=== PATIENT | male | born 1945 | race Caucasian/White ===

== ENCOUNTER 2019-06-28 23:00 | Emergency (ER) | payer MEDICARE, BC ==
--- NOTE | 2019-06-28 23:07 | EDM.PDOC ---
ED HPI GENERAL MEDICAL PROBLEM - General Chief Complaint: General Stated Complaint: SLIPPED AND FELL ON ICE INJURED ARM Time Seen by Provider: 06/28/19 23:04 - History of Present Illness INITIAL COMMENTS - FREE TEXT/NARRATIVE: HISTORY AND PHYSICAL: History of present illness: Patient is a 73-year-old white male presents today status post fall which injured his left upper extremity particularly his elbow although he does complain of shoulder and wrist pain also he states he did hit his head or lost consciousness he denies neck pain or other concern he is currently on Coumadin there's been no nausea vomiting chest pain palpitations or shortness of breath Review of systems: As per history of present illness and below otherwise all systems reviewed and negative. Past medical history: As per history of present illness and as reviewed below otherwise noncontributory. Surgical history: As per history of present illness and as reviewed below otherwise noncontributory. Social history: No reported history of drug or alcohol abuse. Family history: As per history of present illness and as reviewed below otherwise noncontributory. Physical exam: HEENT: Small scalp hematoma noted at the occipital base, normocephalic, pupils reactive, negative for conjunctival pallor or scleral icterus, mucous membranes moist, throat clear, neck supple, nontender, trachea midline. Lungs: Clear to auscultation, breath sounds equal bilaterally, chest nontender. Heart: S1S2, regular, negative for clicks, rubs, or JVD. Abdomen: Soft, nondistended, nontender. Negative for masses or hepatosplenomegaly. Negative for costovertebral tenderness. Pelvis: Stable nontender. Genitourinary: Deferred. Rectal: Deferred. Extremities: Tenderness to palpation of the shoulder elbow and wrist maximal tenderness posteriorly to the elbow is limited range of motion secondary to pain no crepitation or gross deformity neurovascular exam is unremarkable Neuro: Awake, alert, oriented. Cranial nerves II through XII unremarkable. Cerebellum unremarkable. Motor and sensory unremarkable throughout. Exam nonfocal. Diagnostics: CT brain CBC CMP PT/INR EKG x-ray left shoulder elbow and wrist Therapeutics: Left-sided Long-arm posterior mold with sling hydrocodone 5 mg by mouth Impression: #1 48 hours status post fall #2 head injury #3 Coumadin therapy #4 left shoulder elbow and wrist injury Definitive disposition and diagnosis as appropriate pending reevaluation and review of above. left elbow Pain Score (Numeric/FACES): 10 - Related Data Allergies Allergy/AdvReac Type Severity Reaction Status Date / Time No Known Allergies Allergy Verified 07/12/15 19:11 Home Meds: Home Meds Allopurinol [Zyloprim] 100 mg PO DAILY 07/12/15 [History] Aspirin 81 mg PO BEDTIME 07/12/15 [History] Furosemide [Lasix] 1 tab PO DAILY 07/12/15 [History] Rosuvastatin [Crestor] 1 tab PO DAILY 07/12/15 [History] Warfarin [Coumadin] 0 mg PO DAILY 07/12/15 [History] sitaGLIPtin Phos/Metformin HCl [Janumet 50-1,000 MG] 1 tab PO BID 07/12/15 [ History] Carvedilol [Coreg] 25 mg PO BID 06/28/19 [History] Vilazodone Hydrochloride [Viibryd] 10 mg PO 06/28/19 [History] Past Medical History Cardiovascular History: Reports: Automatic Implantable Cardioverter Defibrillators, CAD, High Cholesterol, Pacemaker, Stents Respiratory History: Reports: Sleep Apnea Musculoskeletal History: Reports: Back Pain, Chronic, Gout Neurological History: Reports: Headaches, Chronic Psychiatric History: Reports: Anxiety, Depression Endocrine/Metabolic History: Reports: Diabetes, Type II - Past Surgical History Cardiovascular Surgical History: Reports: Carotid Stents, Pacer, Percutaneous Transluminal Angioplasty ED ROS GENERAL - Review of Systems Review Of Systems: Comprehensive ROS is negative, except as noted in HPI. ED EXAM, GENERAL - Physical Exam Exam: See Below (The dictation) Course - Vital Signs Last Recorded V/S: Last Vital Signs Temp 36.9 C 06/28/19 23:07 Pulse 85 06/28/19 23:07 Resp 18 06/28/19 23:07 BP 138/78 06/28/19 23:07 Pulse Ox 97 06/28/19 23:07 - Orders/Labs/Meds Orders: Active Orders 24 hr Category Date Time Status EKG Documentation Completion [RC] STAT Care 06/28/19 23:06 Active Labs: Laboratory Tests 06/28/19 06/28/19 06/28/19 Range/Units 23:52 23:52 23:52 WBC 7.84 (4.0-11.0) K/uL RBC 3.96 L (4.50-5.90) M/uL Hgb 12.5 L (13.0-17.0) g/dL Hct 36.4 L (38.0-50.0) % MCV 91.9 (80.0-98.0) fL MCH 31.6 (27.0-32.0) pg MCHC 34.3 (31.0-37.0) g/dL RDW Std Deviation 46.9 (28.0-62.0) fl RDW Coeff of Christos 15 (11.0-15.0) % Plt Count 140 L (150-400) K/uL MPV 11.20 (7.40-12.00) fL Neut % (Auto) 68.3 (48.0-80.0) % Lymph % (Auto) 18.1 (16.0-40.0) % Kemper % (Auto) 10.5 (0.0-15.0) % Eos % (Auto) 2.7 (0.0-7.0) % Baso % (Auto) 0.4 (0.0-1.5) % Neut # (Auto) 5.4 (1.4-5.7) K/uL Lymph # (Auto) 1.4 (0.6-2.4) K/uL Kemper # (Auto) 0.8 (0.0-0.8) K/uL Eos # (Auto) 0.2 (0.0-0.7) K/uL Baso # (Auto) 0.0 (0.0-0.1) K/uL INR 1.26 Sodium 139 (136-148) mmol/L Potassium 4.1 (3.5-5.1) mmol/L Chloride 105 (98-107) mmol/L Carbon Dioxide 22.5 (21.0-32.0) mmol/L BUN 14 (7.0-18.0) mg/dL Creatinine 1.4 H (0.8-1.3) mg/dL Est Cr Clr Drug Dosing 46.82 mL/min Estimated GFR (MDRD) 50.0 ml/min Glucose 267 H (74-106) mg/dL Calcium 8.4 L (8.5-10.1) mg/dL Total Bilirubin 0.4 (0.2-1.0) mg/dL AST 10 L (15-37) IU/L ALT 25 (14-63) IU/L Alkaline Phosphatase 75 (46-116) U/L Troponin I (0.000-0.056) ng/mL Total Protein 7.0 (6.4-8.2) g/dL Albumin 3.3 L (3.4-5.0) g/dL Globulin 3.7 (2.6-4.0) g/dL Albumin/Globulin Ratio 0.9 (0.9-1.6) 06/28/19 Range/Units 23:52 WBC (4.0-11.0) K/uL RBC (4.50-5.90) M/uL Hgb (13.0-17.0) g/dL Hct (38.0-50.0) % MCV (80.0-98.0) fL MCH (27.0-32.0) pg MCHC (31.0-37.0) g/dL RDW Std Deviation (28.0-62.0) fl RDW Coeff of Christos (11.0-15.0) % Plt Count (150-400) K/uL MPV (7.40-12.00) fL Neut % (Auto) (48.0-80.0) % Lymph % (Auto) (16.0-40.0) % Kemper % (Auto) (0.0-15.0) % Eos % (Auto) (0.0-7.0) % Baso % (Auto) (0.0-1.5) % Neut # (Auto) (1.4-5.7) K/uL Lymph # (Auto) (0.6-2.4) K/uL Kemper # (Auto) (0.0-0.8) K/uL Eos # (Auto) (0.0-0.7) K/uL Baso # (Auto) (0.0-0.1) K/uL INR Sodium (136-148) mmol/L Potassium (3.5-5.1) mmol/L Chloride (98-107) mmol/L Carbon Dioxide (21.0-32.0) mmol/L BUN (7.0-18.0) mg/dL Creatinine (0.8-1.3) mg/dL Est Cr Clr Drug Dosing mL/min Estimated GFR (MDRD) ml/min Glucose (74-106) mg/dL Calcium (8.5-10.1) mg/dL Total Bilirubin (0.2-1.0) mg/dL AST (15-37) IU/L ALT (14-63) IU/L Alkaline Phosphatase (46-116) U/L Troponin I < 0.050 (0.000-0.056) ng/mL Total Protein (6.4-8.2) g/dL Albumin (3.4-5.0) g/dL Globulin (2.6-4.0) g/dL Albumin/Globulin Ratio (0.9-1.6) Departure - Departure Time of Disposition: 00:35 Disposition: Home, Self-Care 01 Condition: Good Clinical Impression: Fall, Head injury, Elbow injury, Shoulder injury, Wrist injury - Discharge Information Forms: ED Department Discharge Additional Instructions: The following information is given to patients seen in the emergency department who are being discharged to home. This information is to outline your options for follow-up care. We provide all patients seen in our emergency department with a follow-up referral. The need for follow-up, as well as the timing and circumstances, are variable depending upon the specifics of your emergency department visit. If you don't have a primary care physician on staff, we will provide you with a referral. We always advise you to contact your personal physician following an emergency department visit to inform them of the circumstance of the visit and for follow-up with them and/or the need for any referrals to a consulting specialist. The emergency department will also refer you to a specialist when appropriate. This referral assures that you have the opportunity for followup care with a specialist. All of these measure are taken in an effort to provide you with optimal care, which includes your followup. Under all circumstances we always encourage you to contact your private physician who remains a resource for coordinating your care. When calling for followup care, please make the office aware that this follow-up is from your recent emergency room visit. If for any reason you are refused follow-up, please contact the [facility] emergency department at and asked to speak to the emergency department charge nurse. [facility] Special[facility] - [facility] Professional [address], [address] [place] [address] Long-arm posterior mold sling as directed hydrocodone as prescribed continue current medications follow with orthopedic surgery as discussed return as needed as discussed - My Orders Last 24 Hours: My Active Orders 06/28/19 23:06 EKG Documentation Completion [RC] STAT - Assessment/Plan Last 24 Hours: My Active Orders 06/28/19 23:06 EKG Documentation Completion [RC] STAT
--- NOTE | 2019-06-28 23:55 | CT ---
INDICATION: Status post fall, striking head. COMPARISON: None available. TECHNIQUE: CT examination of the head was performed with 3 mm thick axial sections without intravenous contrast. Images were obtained from the vertex of the skull through the skull base, and I examined the images with the brain and bone windows. Please note that all CT scans at this facility use dose modulation, iterative reconstruction, and/or weight-based dosing when appropriate to reduce radiation dose to as low as reasonably achievable. FINDINGS: : The brain is normal in appearance for the patient`s age on today`s study, with no sign of mass lesion, mass effect, hemorrhage, or edema. There is mild dilatation of the ventricles and sulci representing mild, age-appropriate atrophy. Incidental note is made of a partially empty sella. The visualized portions of the orbits are normal in appearance. There is a mucous retention cyst in the inferior right maxillary sinus. The rest of the visualized portions of the paranasal sinuses and mastoids are clear. The osseous structures are normal in their appearance with no sign of abnormality in the skull base or calvarium. IMPRESSION: No sign of closed head injury. Normal CT appearance of the brain for the patient`s age. Mild, age-appropriate atrophy. Please note that all CT scans at this facility use dose modulation, iterative reconstruction, and/or weight-based dosing when appropriate to reduce radiation dose to as low as reasonably achievable. Dictated by Vinnie Chavez MD @ Jun 28 2019 11:51PM Signed by Dr. Vinnie Chavez @ Jun 28 2019 11:53PM
--- NOTE | 2019-06-28 23:57 | CR ---
INDICATION: Pain after fall COMPARISON: None available. FINDINGS: The left shoulder was examined a single AP view. The osseous structures are in anatomic alignment without fracture or dislocation. There is anatomic alignment of the humeral head and glenoid. The visualized chest is clear. A left-sided pacemaker has leads entering the left subclavian vein. The heart appears to be moderately enlarged, but this may be the result of shallow inspiration. IMPRESSION: Normal left shoulder on a single AP view. Dictated by Vinnie Chavez MD @ Jun 28 2019 11:54PM Signed by Dr. Vinnie Chavez @ Jun 28 2019 11:55PM
--- NOTE | 2019-06-28 23:59 | CR ---
INDICATION: Pain after fall COMPARISON: None available. FINDINGS: The left elbow is examined with AP and lateral views. I do not see a definite fracture, but there is a mild elbow joint effusion, with mild elevation of both the anterior and posterior fat pads. This suggests an occult fracture, possibly of the radial head. There is mild deformity of the distal humerus, with mild posterior angulation, consistent with an old, healed fracture. Small ossifications are seen adjacent to the superior portion of the olecranon consistent with previous soft tissue injury. There is a small dorsal olecranon spur and mild spurring of the anterior aspect of the radial head. The soft tissues are normal in appearance without sign of radio-opaque foreign body. IMPRESSION: No definite fracture. However, elbow joint effusion suggests an occult fracture, such as of the radial head. Mild deformity of the distal humeral shaft from an old, healed fracture. Dictated by Vinnie Chavez MD @ Jun 28 2019 11:54PM Signed by Dr. Vinnie Chavez @ Jun 28 2019 11:58PM
--- NOTE | 2019-06-29 00:01 | CR ---
HISTORY: Pain after fall COMPARISON: None available. FINDINGS: AP and lateral of the left wrist are obtained for a total of three views. There is no sign of fracture or dislocation. The bones of the carpus are in anatomic alignment with the distal radius. 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 The soft tissues are normal in appearance with no sign of foreign body. IMPRESSION: No sign of acute osseous injury. 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 Dictated by Vinnie Chavez MD @ Jun 28 2019 11:54PM Signed by Dr. Vinnie Chavez @ Jun 29 2019 12:00AM
[2019-06-29 00:20] LABS: CARBON DIOXIDE,CO2 22.5 mmol/L (21.0-32.0); POTASSIUM,K 4.1 mmol/L (3.5-5.1)
[2019-06-29] MEDS ORDERED: Acetaminophen/HYDROcodone 325-5 MG Tab PO ONE (00:36)
[2019-06-29 01:11] VITALS: BP 109/79; PULSE 85
== END 2019-06-29 01:05 | disposition home or self-care (01) ==
LOC: MW.ED 23:00
DX: S00.03XA Contusion of scalp, initial encounter (principal); S69.92XA Unspecified injury of left wrist, hand and finger(s), initial encounter; S49.92XA Unspecified injury of left shoulder and upper arm, initial encounter; S59.902A Unspecified injury of left elbow, initial encounter; E11.9 Type 2 diabetes mellitus without complications; I25.10 Atherosclerotic heart disease of native coronary artery without angina pectoris; E78.00 Pure hypercholesterolemia, unspecified; Z79.82 Long term (current) use of aspirin; Z79.01 Long term (current) use of anticoagulants; Z79.899 Other long term (current) drug therapy; W06.XXXA Fall from bed, initial encounter
CPT/HCPCS: 29105; 36415; 70450; 73020; 73070; 73100; 80053; 84484; 85025; 85610; 93005; 99284; A9270

== ENCOUNTER 2020-03-09 14:10 | Emergency (ER) | payer MEDICARE, BC ==
[2020-03-09] MEDS ORDERED: Sodium Chloride 0.9% 10 ML Syringe FLUSH PRN (14:24)
[2020-03-09] MEDS ORDERED: Sodium Chloride 0.9% 2.5 ML Syringe FLUSH PRN (14:24)
--- NOTE | 2020-03-09 14:28 | EDM.PDOC ---
ED HPI GENERAL MEDICAL PROBLEM - General Chief Complaint: Abdominal Pain Stated Complaint: APENDIX Time Seen by Provider: 03/09/20 14:18 Source of Information: Reports: Patient - History of Present Illness INITIAL COMMENTS - FREE TEXT/NARRATIVE: History of present illness: 74-year-old male presenting with left-sided abdominal pain that awoke him from sleep at 2 AM. He reports it is the size of a half dollar coin localized to the left middle abdomen and worse with palpation. Did have some mild nausea but no vomiting and decreased appetite throughout the day today. Has not had any diarrhea or constipation. No dysuria. Apparently today the Coumadin monitoring nurse called him and told him that his INR level was 1.5 and his goal is 2-3 and when they heard that he was having abdominal pain they told him to come to the hospital to get checked out. The patient is concerned that he may have appendicitis. Review of systems: As per history of present illness and below otherwise all systems reviewed and negative. Past medical history: As per history of present illness and as reviewed below otherwise noncontributory. Diabetes hypertension atrial fibrillation, coronary artery disease Surgical history: As per history of present illness and as reviewed below otherwise noncontributory. Pacemaker/defibrillator Social history: No reported history of drug or alcohol abuse. No tobacco Family history: As per history of present illness and as reviewed below otherwise noncontributory. Physical exam: GEN: no acute distress, well appearing HEENT: Atraumatic, normocephalic, mucous membranes moist, Neck: supple, nontender, trachea midline. Lungs: No respiratory distress. Heart: RRR Abdomen: Soft, nondistended, tender to palpation left upper quadrant/left middle abdomen. No right lower quadrant tenderness. Very mild left lower quadrant tenderness. No right upper quadrant tenderness. Mild guarding during palpation of the left mid abdomen. No rebound Back: nontender Extremities: Atraumatic. Neurovascularly intact. Neuro: Awake, alert, oriented. Neuro Exam nonfocal. Skin: warm, dry, no lesions Diagnostics: Labs, CT, UA, EKG Therapeutics: IV fluids MDM: Impression: [] Plan: [] Definitive disposition and diagnosis as appropriate pending reevaluation and review of above. Left Abdomen Pain Score (Numeric/FACES): 5 - Related Data Allergies Allergy/AdvReac Type Severity Reaction Status Date / Time No Known Allergies Allergy Verified 03/09/20 14:17 Home Meds: Home Meds Allopurinol [Zyloprim] 100 mg PO DAILY 07/12/15 [History] Aspirin 81 mg PO BEDTIME 07/12/15 [History] Furosemide [Lasix] 1 tab PO DAILY 07/12/15 [History] Rosuvastatin [Crestor] 1 tab PO DAILY 07/12/15 [History] Warfarin [Coumadin] 5 mg PO DAILY 07/12/15 [History] sitaGLIPtin Phos/Metformin HCl [Janumet 50-1,000 MG] 1 tab PO BID 07/12/15 [History] carvediloL [Coreg] 25 mg PO BID 06/28/19 [History] Past Medical History Cardiovascular History: Reports: Automatic Implantable Cardioverter Defibrillators, CAD, High Cholesterol, Pacemaker, Stents Respiratory History: Reports: Sleep Apnea Musculoskeletal History: Reports: Back Pain, Chronic, Gout Neurological History: Reports: Headaches, Chronic Psychiatric History: Reports: Anxiety, Depression Endocrine/Metabolic History: Reports: Diabetes, Type II Hematologic History: Reports: None - Infectious Disease History Infectious Disease History: Reports: Chicken Pox, Mumps - Past Surgical History Cardiovascular Surgical History: Reports: Carotid Stents, Pacer, Percutaneous Transluminal Angioplasty Social & Family History - Family History Family Medical History: Noncontributory ED ROS GENERAL - Review of Systems Review Of Systems: See Below (See HPI) ED EXAM, GI/ABD - Physical Exam Exam: See Below (See HPI) Course - Vital Signs Text/Narrative:: Left mid/upper abdominal pain. No diarrhea. Labs unremarkable except for elevated creatinine. Patient given IV fluids. CT scan shows diverticulosis without diverticulitis and no appendicitis. No etiology found for the patient's pain. He has been taking increased doses of ibuprofen lately. His INR level was slightly low on lab draw yesterday outpatient and also on draw here 1.46. Goal 2-3. EKG sinus rhythm rate 72 with PVC, slightly prolonged HI interval, nonspecific intraventricular delay but no acute ischemia or STEMI. Troponin negative. Repeat troponin pending. Possible gastritis versus gastric ulcer versus pancreatitis though patient is not a drinker. Repeat troponin negative. Lipase not elevated. Patient feels better after GI cocktail. Discussed again complete cessation of ibuprofen and need to follow-up with primary care physician soon as possible. Last Recorded V/S: Last Vital Signs Temp 97.1 F 03/09/20 19:30 Pulse 68 03/09/20 19:30 Resp 20 03/09/20 19:30 BP 111/75 03/09/20 19:30 Pulse Ox 98 03/09/20 19:30 - Orders/Labs/Meds Orders: Active Orders 24 hr Category Date Time Status Saline Lock Insert [OM.PC] Stat Oth 03/09/20 14:24 Ordered Labs: Laboratory Tests 03/09/20 03/09/20 03/09/20 Range/Units 14:35 14:35 14:35 WBC 6.71 (4.0-11.0) K/uL RBC 4.00 L (4.50-5.90) M/uL Hgb 12.6 L (13.0-17.0) g/dL Hct 38.0 (38.0-50.0) % MCV 95.0 (80.0-98.0) fL MCH 31.5 (27.0-32.0) pg MCHC 33.2 (31.0-37.0) g/dL RDW Std Deviation 47.0 (28.0-62.0) fl RDW Coeff of Christos 14 (11.0-15.0) % Plt Count 138 L (150-400) K/uL MPV 11.10 (7.40-12.00) fL Neut % (Auto) 63.0 (48.0-80.0) % Lymph % (Auto) 26.5 (16.0-40.0) % Cuming % (Auto) 6.9 (0.0-15.0) % Eos % (Auto) 3.3 (0.0-7.0) % Baso % (Auto) 0.3 (0.0-1.5) % Neut # (Auto) 4.2 (1.4-5.7) K/uL Lymph # (Auto) 1.8 (0.6-2.4) K/uL Cuming # (Auto) 0.5 (0.0-0.8) K/uL Eos # (Auto) 0.2 (0.0-0.7) K/uL Baso # (Auto) 0.0 (0.0-0.1) K/uL INR 1.41 APTT 26.3 (18.6-31.3) SEC Sodium 136 (136-148) mmol/L Potassium 3.9 (3.5-5.1) mmol/L Chloride 102 (98-107) mmol/L Carbon Dioxide 24.8 (21.0-32.0) mmol/L BUN 22 H (7.0-18.0) mg/dL Creatinine 1.6 H (0.8-1.3) mg/dL Est Cr Clr Drug Dosing 43.09 mL/min Estimated GFR (MDRD) 42.7 ml/min Glucose 170 H (74-106) mg/dL Calcium 8.4 L (8.5-10.1) mg/dL Total Bilirubin 0.5 (0.2-1.0) mg/dL AST 21 (15-37) IU/L ALT 27 (14-63) IU/L Alkaline Phosphatase 68 (46-116) U/L Troponin I < 0.050 (0.000-0.056) ng/mL Total Protein 7.2 (6.4-8.2) g/dL Albumin 3.5 (3.4-5.0) g/dL Globulin 3.7 (2.6-4.0) g/dL Albumin/Globulin Ratio 0.9 (0.9-1.6) Lipase (73-393) U/L Urine Color Urine Appearance Urine pH (5.0-8.0) Ur Specific [place] (1.001-1.035) Urine Protein (NEGATIVE) mg/dL Urine Glucose (UA) (NEGATIVE) mg/dL Urine Ketones (NEGATIVE) mg/dL Urine Occult Blood (NEGATIVE) Urine Nitrite (NEGATIVE) Urine Bilirubin (NEGATIVE) Urine Urobilinogen (<2.0) EU/dL Ur Leukocyte Esterase (NEGATIVE) 03/09/20 03/09/20 Range/Units 15:03 17:55 WBC (4.0-11.0) K/uL RBC (4.50-5.90) M/uL Hgb (13.0-17.0) g/dL Hct (38.0-50.0) % MCV (80.0-98.0) fL MCH (27.0-32.0) pg MCHC (31.0-37.0) g/dL RDW Std Deviation (28.0-62.0) fl RDW Coeff of Christos (11.0-15.0) % Plt Count (150-400) K/uL MPV (7.40-12.00) fL Neut % (Auto) (48.0-80.0) % Lymph % (Auto) (16.0-40.0) % [place]uming % (Auto) (0.0-15.0) % Eos % (Auto) (0.0-7.0) % Baso % (Auto) (0.0-1.5) % Neut # (Auto) (1.4-5.7) K/uL Lymph # (Auto) (0.6-2.4) K/uL Cuming # (Auto) (0.0-0.8) K/uL Eos # (Auto) (0.0-0.7) K/uL Baso # (Auto) (0.0-0.1) K/uL INR APTT (18.6-31.3) SEC Sodium (136-148) mmol/L Potassium (3.5-5.1) mmol/L Chloride (98-107) mmol/L Carbon Dioxide (21.0-32.0) mmol/L BUN (7.0-18.0) mg/dL Creatinine (0.8-1.3) mg/dL Est Cr Clr Drug Dosing mL/min Estimated GFR (MDRD) ml/min Glucose (74-106) mg/dL Calcium (8.5-10.1) mg/dL Total Bilirubin (0.2-1.0) mg/dL AST (15-37) IU/L ALT (14-63) IU/L Alkaline Phosphatase (46-116) U/L Troponin I < 0.050 (0.000-0.056) ng/mL Total Protein (6.4-8.2) g/dL Albumin (3.4-5.0) g/dL Globulin (2.6-4.0) g/dL Albumin/Globulin Ratio (0.9-1.6) Lipase 156 (73-393) U/L Urine Color YELLOW Urine Appearance CLEAR Urine pH 6.0 (5.0-8.0) Ur Specific [place] 1.025 (1.001-1.035) Urine Protein NEGATIVE (NEGATIVE) mg/dL Urine Glucose (UA) NEGATIVE (NEGATIVE) mg/dL Urine Ketones NEGATIVE (NEGATIVE) mg/dL Urine Occult Blood NEGATIVE (NEGATIVE) Urine Nitrite NEGATIVE (NEGATIVE) Urine Bilirubin NEGATIVE (NEGATIVE) Urine Urobilinogen 0.2 (<2.0) EU/dL Ur Leukocyte Esterase NEGATIVE (NEGATIVE) Meds: Medications Discontinued Medications Generic Name Dose Route Start Last Admin Trade Name Freq PRN Reason Stop Dose Admin Sodium Chloride 500 mls @ 999 mls/hr 03/09/20 14:30 03/09/20 14:36 Normal Saline IV 999 mls/hr .BOLUS JOHNIE Administration Sodium Chloride 500 mls @ 999 mls/hr 03/09/20 15:45 03/09/20 16:40 Normal Saline IV 999 mls/hr .BOLUS JOHNIE Administration Pantoprazole Sodium 40 mg/ 10 mls @ 300 mls/hr 03/09/20 17:36 03/09/20 23:28 Sodium Chloride IV 03/09/20 17:37 Not Given NOW ONE Iopamidol 100 ml 03/09/20 16:15 03/09/20 16:16 Isovue Multipack-370 (76%) IVPUSH 03/09/20 16:16 100 ml ONETIME STA Administration Sodium Chloride 10 ml 03/09/20 14:24 03/09/20 14:37 Saline Flush FLUSH 10 ml ASDIRECTED PRN Administration Keep Vein Open Sodium Chloride 2.5 ml 03/09/20 14:24 03/09/20 14:37 Saline Flush FLUSH 2.5 ml ASDIRECTED PRN Administration Keep Vein Open - Re-Assessments/Exams Free Text/Narrative Re-Assessment/Exam: 03/09/20 17:37 Reassessed the patient. He is resting comfortably and in no acute distress. Discussed all results with the patient at this time including slightly elevated creatinine, findings of diverticulosis without diverticulitis and no other findings on the CT to account for his pain. He does report that he has been taking increased doses of ibuprofen for his arthritis/inflammation of his arm. I discussed with the patient need to absolutely avoid ibuprofen or other NSAIDs due to interaction with his Coumadin and risk factor of ulcer formation. He agrees to stop immediately. Will give GI cocktail and Protonix. Repeat troponin ordered. 03/09/20 19:14 The patient is feeling better. He is in no acute distress. He is asymptomatic at this time. Will discharge the patient. The Coumadin clinic nurse will call him tomorrow to confirm dosage change. Repeat troponin and lipase are both negative. Stable for discharge. Departure - Departure Time of Disposition: 19:15 Disposition: Home, Self-Care 01 Clinical Impression: Abdominal pain Qualifiers: Abdominal location: left upper quadrant Qualified Code(s): R10.12 - Left upper quadrant pain - Discharge Information Instructions: Gastritis, Adult, [id number], Abdominal Pain, Adult, [id number] Referrals: PCP,None [Primary Care Provider] - Forms: ED Department Discharge Additional Instructions: Avoid any ibuprofen, Advil, Motrin, naproxen or Aleve intake as this will interact with your Coumadin. Drink plenty of fluids, rest, start with a clear liquid diet for the next 24 hours and then slowly progressed to bland solid foods and then you may progress as tolerated. Please follow-up with your primary care physician or 1 of the primary care clinics listed below as soon as possible for recheck. You may need further testing outpatient including possibly GI or general surgery follow-up for an endoscopy. We did not find a cause for your pain today although we did see diverticulosis without diverticulitis on your CT scan. Continue to monitor how you feel. If your symptoms worsen or if you develop a high fever or any other concerning symptoms, please return to the emergency department immediately. The following information is given to patients seen in the emergency department who are being discharged to home. This information is to outline your options for follow-up care. We provide all patients seen in our emergency department with a follow-up referral. The need for follow-up, as well as the timing and circumstances, are variable depending upon the specifics of your emergency department visit. If you don't have a primary care physician on staff, we will provide you with a referral. We always advise you to contact your personal physician following an emergency department visit to inform them of the circumstance of the visit and for follow-up with them and/or the need for any referrals to a consulting specialist. The emergency department will also refer you to a specialist when appropriate. This referral assures that you have the opportunity for follow-up care with a specialist. All of these measure are taken in an effort to provide you with optimal care, which includes your follow-up. Under all circumstances we always encourage you to contact your private physician who remains a resource for coordinating your care. When calling for follow-up care, please make the office aware that this follow-up is from your recent emergency room visit. If for any reason you are refused follow-up, please contact the [facility] Emergency Department at and asked to speak to the emergency department charge nurse. [facility] [address] [place] [id number] [address] Sepsis Event Note (ED) - Evaluation Sepsis Screening Result: No Definite Risk - My Orders Last 24 Hours: My Active Orders 03/09/20 14:24 Saline Lock Insert [OM.PC] Stat - Assessment/Plan Last 24 Hours: My Active Orders 03/09/20 14:24 Saline Lock Insert [OM.PC] Stat
[2020-03-09] MEDS ORDERED: Sodium Chloride 0.9% 500 ML IV SCH ×2 (14:30→15:45)
[2020-03-09 15:16] LABS: BLOOD UREA NITROGEN,BUN 22 mg/dL (7.0-18.0); CARBON DIOXIDE,CO2 24.8 mmol/L (21.0-32.0); CHLORIDE,CL 102 mmol/L (98-107); GLUCOSE RANDOM 170 mg/dL (74-106); POTASSIUM,K 3.9 mmol/L (3.5-5.1); SODIUM,NA 136 mmol/L (136-148)
[2020-03-09] MEDS ORDERED: Iopamidol 755 MG/ML 500 ML Multipack Bottle IVPUSH STA (16:15)
--- NOTE | 2020-03-09 16:38 | CT ---
CT abdomen and pelvis Technique: Multiple axial sections were obtained from above the dome of the diaphragm inferiorly through the pubic symphysis. Intravenous contrast was utilized. No oral contrast has been given. Comparison: No prior abdominal imaging is available. Findings: Visualized lung bases show nothing acute. Liver contains no focal parenchymal abnormality. Liver may have mild fatty infiltration. Moderate sized hiatal hernia is noted. Spleen appears within normal limits. Adrenal glands show no nodule. Pancreas shows no discrete abnormality. Gallbladder contains no calcified gallstones. 2 calcifications are seen within the right kidney. 3 calcifications are seen within the left kidney. These are felt compatible with nonobstructing calculi. Right kidney shows a small cortical cyst measuring 1.0 cm. Second small cyst within the right kidney measuring 6 mm. No additional abnormalities are seen within the kidneys. No ureteral dilatation or ureteral calculi are seen. No bladder calculi are seen. Aorta shows atherosclerotic change which continues into the iliac vessels. No aneurysm is seen. No retroperitoneal adenopathy or mesenteric abnormalities are seen. Small fat-containing umbilical hernia is noted. No pelvic mass or adenopathy is seen. Mild diverticuli are seen within the sigmoid colon with no findings of diverticulitis. No free fluid or inflammatory change is appreciated. Appendix is felt to be visualized and is normal in size. Bone window settings were reviewed which shows disc space narrowing from L2-3 through L5-S1 with vacuum phenomena. Disc space narrowing and vacuum phenomenon also noted at T9-10. Other degenerative change is also seen within the spine. No acute osseous finding is seen. Impression: 1. Findings as noted above. 2. Nothing acute is appreciated on CT study of the abdomen and pelvis. No etiology identified for the patient's left-sided abdominal pain. Diagnostic code #2 This report was dictated in MDT
[2020-03-09] MEDS ORDERED: Pantoprazole 40 MG in Sodium Chloride 0.9% 10 ML IV ONE (17:36)
[2020-03-09 18:01] LABS: LIPASE 156 U/L (73-393)
[2020-03-09 23:26] VITALS: BP 111/75; PULSE 68
== END 2020-03-09 19:39 | disposition home or self-care (01) ==
LOC: MW.ED 14:10
DX: R10.12 Left upper quadrant pain (principal); M10.9 Gout, unspecified; E11.9 Type 2 diabetes mellitus without complications; I25.10 Atherosclerotic heart disease of native coronary artery without angina pectoris; E78.00 Pure hypercholesterolemia, unspecified; Z95.5 Presence of coronary angioplasty implant and graft; Z79.01 Long term (current) use of anticoagulants; Z79.84 Long term (current) use of oral hypoglycemic drugs; Z79.899 Other long term (current) drug therapy; Z79.82 Long term (current) use of aspirin
CPT/HCPCS: 36415; 74177; 80053; 81003; 83690; 84484; 85025; 85610; 85730; 93005; 96360; 99284; J7040; Q9967

== ENCOUNTER 2021-01-01 08:52 | Observation (INO) | payer MEDICARE, BC ==
[2021-01-01] MEDS ORDERED: Sodium Chloride 0.9% 10 ML Syringe FLUSH PRN (09:06)
[2021-01-01] MEDS ORDERED: Sodium Chloride 0.9% 2.5 ML Syringe FLUSH PRN ×2 (09:06→11:45)
[2021-01-01 09:34] LABS: BLOOD UREA NITROGEN,BUN 18 mg/dL (7.0-18.0); CARBON DIOXIDE,CO2 23.9 mmol/L (21.0-32.0); CHLORIDE,CL 103 mmol/L (98-107); GLUCOSE RANDOM 189 mg/dL (74-106); SODIUM,NA 139 mmol/L (136-148)
--- NOTE | 2021-01-01 09:37 | EDM.PDOC ---
ED HPI GENERAL MEDICAL PROBLEM - General Chief Complaint: Chest Pain Stated Complaint: CHEST PAIN Time Seen by Provider: 01/01/21 09:05 - History of Present Illness INITIAL COMMENTS - FREE TEXT/NARRATIVE: HISTORY AND PHYSICAL: History of present illness: This is a 75-year-old gentleman with history significant for hypertension, diabetes, CAD, TIA, on Coumadin, status post recent cataract surgery approximately 1 to 2 weeks ago, status post defibrillator, who presents ER today secondary to left and right-sided chest discomfort with associated shortness of breath and diaphoresis x1 day. Patient reports that the pain has been intermittent in nature. Patient does not recall pain being exacerbated or relieved with rest, exertion, inspiration, cough. Patient denies any recent fevers, shakes, chills, nausea, vomiting, diarrhea, dysuria, frequency, urgency, abdominal pain, back pain. Patient denies any pain rating down his jaw or arm or back. Patient denies any associated nausea. Review of systems: As per history of present illness and below otherwise all systems reviewed and negative. Past medical history: As per history of present illness and as reviewed below otherwise noncontributory. Surgical history: As per history of present illness and as reviewed below otherwise noncontributory. Social history: No reported history of drug abuse. Family history: As per history of present illness and as reviewed below otherwise noncontributory. Physical exam: This patient was seen and evaluated during the 2019 SARS-CoV-2 novel coronavirus pandemic period. Community viral transmission is ongoing at time of this encounter and the emergency department is operating under pandemic response procedures. Constitutional: Patient is oriented to person, place, and time. Appears well- developed and well-nourished. No distress. HEENT: Moist mucous membranes Head: Normocephalic and atraumatic Eyes: Right eye exhibits no discharge. Left eye exhibits no discharge. No scleral icterus Neck: Normal range of motion. No tracheal deviation present. Cardiovascular: Normal rate and regular rhythm. Pulmonary: Effort normal, no respiratory distress. Abdominal: No distention Musculoskeletal: Normal range of motion Neurologic: Alert and oriented to person, place and time. Skin: [place], warm and dry. Psychiatric: Normal mood and affect. Behavior is normal. Judgment and thought content normal. Nursing note and vital signs have been reviewed Patient with nonreproducible tenderness palpation to his anterior chest wall. Diagnostics: EKG: As interpreted by ER physician: Leo: Nonspecific ST-T wave abnormalities Normal axis Left anterior hemiblock, age-indeterminate anterior septal wall AK likely old. No evidence of ST elevation AK Normal sinus rhythm heart rate of 82 Chest Xray: Normal cardiac silhouette No infiltrates or effusions identified. No PTX No evidence of acute bony fracture. As interpreted by ER MD: [employer]: Patient was lateral within normal limits. Patient's EKG does not show any significant changes. Patient did have an elevated BNP. Given patient's risk factors and symptoms patient will be admitted to the hospital for observation rule out AK, acute coronary syndrome, gentle diuresis. Case was discussed with Dr. Lui who agrees with current plan of care. Assessment and plan: This is a 75-year-old gentleman with high risk for coronary artery disease who presents ER today complaining of left-sided chest discomfort x1 day. He reports that the discomfort has been intermittent in nature and is currently pain-free. Patient has no relieving or exacerbating factors. Patient's risk factors include hypertension, diabetes, prior CAD. Patient's associated symptoms are shortness of breath, diaphoresis. Patient will have labs here in the ED drawn as well as an EKG, chest x-ray and will be reevaluated. Patient is currently chest pain-free. Patient will have a Covid test also secondary to his complaint of shortness of breath. Definitive disposition and diagnosis as appropriate pending reevaluation and review of above. - Related Data Allergies Allergy/AdvReac Type Severity Reaction Status Date / Time No Known Allergies Allergy Verified 01/01/21 09:50 Home Meds: Home Meds Allopurinol [Zyloprim] 1 tab PO DAILY 01/01/21 [History] Colchicine 2 tab PO DAILY 01/01/21 [History] Eplerenone [Inspra] 25 mg PO DAILY 01/01/21 [History] Ezetimibe 10 mg PO DAILY 01/01/21 [History] Furosemide 20 mg PO BID 01/01/21 [History] Insulin Detemir [Levemir Flextouch] 20 units SQ ASDIRECTED 01/01/21 [History] Omeprazole 20 mg PO DAILY 01/01/21 [History] Pravastatin [Pravachol] 80 mg PO DAILY 01/01/21 [History] Warfarin Sodium [Jantoven] 5 mg PO ASDIRECTED 01/01/21 [History] carvediloL [Carvedilol] 25 mg PO BID 01/01/21 [History] ramipriL [Ramipril] 2.5 mg PO DAILY 01/01/21 [History] Past Medical History Cardiovascular History: Reports: Automatic Implantable Cardioverter Defibrillators, CAD, High Cholesterol, Pacemaker, Stents Respiratory History: Reports: Sleep Apnea Musculoskeletal History: Reports: Back Pain, Chronic, Gout Other Musculoskeletal History: fx L elbow- continued numbness Neurological History: Reports: Headaches, Chronic Psychiatric History: Reports: Anxiety, Depression Endocrine/Metabolic History: Reports: Diabetes, Type II Hematologic History: Reports: None - Infectious Disease History Infectious Disease History: Reports: Chicken Pox, Mumps - Past Surgical History Cardiovascular Surgical History: Reports: Carotid Stents, Pacer, Percutaneous Transluminal Angioplasty Social & Family History - Family History Family Medical History: No Pertinent Family History - Tobacco Use Tobacco Use Status *Q: Never Tobacco User - Caffeine Use Caffeine Use: Reports: Tea - Recreational Drug Use Recreational Drug Use: No ED ROS GENERAL - Review of Systems Review Of Systems: See Below ED EXAM, GENERAL - Physical Exam Exam: See Below Course - Vital Signs Last Recorded V/S: Last Vital Signs Temp 97.6 F 01/01/21 09:00 Pulse 82 01/01/21 10:31 Resp 16 01/01/21 10:31 BP 109/57 L 01/01/21 10:31 Pulse Ox 96 01/01/21 10:31 - Orders/Labs/Meds Orders: Active Orders 24 hr Category Date Time Status Patient Status [ADT] Routine ADT 01/01/21 10:49 Ordered EKG Documentation Completion [RC] AM Care 01/01/21 09:06 Active Sodium Chloride 0.9% [Saline Flush] Med 01/01/21 09:06 Active 10 ml FLUSH ASDIRECTED PRN Sodium Chloride 0.9% [Saline Flush] Med 01/01/21 09:06 Active 2.5 ml FLUSH ASDIRECTED PRN Saline Lock Insert [OM.PC] Stat Oth 01/01/21 09:06 Ordered Medication Orders Sodium Chloride (Sodium Chloride 0.9% 10 Ml Syringe) 10 ml FLUSH ASDIRECTED PRN PRN Reason: Keep Vein Open Last Admin: 01/01/21 09:27 Dose: 10 ml Documented by: [email or web address] Sodium Chloride (Sodium Chloride 0.9% 2.5 Ml Syringe) 2.5 ml FLUSH ASDIRECTED PRN PRN Reason: Keep Vein Open Last Admin: 01/01/21 09:27 Dose: 2.5 ml Documented by: [id number] Labs: Laboratory Tests 01/01/21 01/01/21 01/01/21 Range/Units 08:57 08:57 08:57 WBC 10.07 (4.0-11.0) K/uL RBC 4.31 L (4.50-5.90) M/uL Hgb 13.4 (13.0-17.0) g/dL Hct 40.3 (38.0-50.0) % MCV 93.5 (80.0-98.0) fL MCH 31.1 (27.0-32.0) pg MCHC 33.3 (31.0-37.0) g/dL RDW Std Deviation 51.1 (28.0-62.0) fl RDW Coeff of Christos 15 (11.0-15.0) % Plt Count 188 (150-400) K/uL MPV 11.40 (7.40-12.00) fL Neut % (Auto) 71.2 (48.0-80.0) % Lymph % (Auto) 17.8 (16.0-40.0) % Bent % (Auto) 8.4 (0.0-15.0) % Eos % (Auto) 2.1 (0.0-7.0) % Baso % (Auto) 0.5 (0.0-1.5) % Neut # (Auto) 7.2 H (1.4-5.7) K/uL Lymph # (Auto) 1.8 (0.6-2.4) K/uL Bent # (Auto) 0.9 H (0.0-0.8) K/uL Eos # (Auto) 0.2 (0.0-0.7) K/uL Baso # (Auto) 0.1 (0.0-0.1) K/uL Nucleated RBC % 0.0 /100WBC Nucleated RBCs # 0 K/uL INR 2.79 D-Dimer, Quantitative 0.36 (0.0-0.50) mg/L FEU Sodium 139 (136-148) mmol/L Potassium 4.0 (3.5-5.1) mmol/L Chloride 103 (98-107) mmol/L Carbon Dioxide 23.9 (21.0-32.0) mmol/L BUN 18 (7.0-18.0) mg/dL Creatinine 1.6 H (0.8-1.3) mg/dL Est Cr Clr Drug Dosing 42.46 mL/min Estimated GFR (MDRD) 42.6 ml/min Glucose 189 H (74-106) mg/dL Calcium 8.7 (8.5-10.1) mg/dL Total Bilirubin 0.9 (0.2-1.0) mg/dL AST 14 L (15-37) IU/L ALT 18 (14-63) IU/L Alkaline Phosphatase 80 (46-116) U/L Troponin I < 0.050 (0.000-0.056) ng/mL B-Natriuretic Peptide (<100) PG/ML Total Protein 7.8 (6.4-8.2) g/dL Albumin 3.4 (3.4-5.0) g/dL Globulin 4.4 H (2.6-4.0) g/dL Albumin/Globulin Ratio 0.8 L (0.9-1.6) SARS-CoV-2 RNA (ANALI) (NEGATIVE) 01/01/21 01/01/21 Range/Units 08:57 09:25 WBC (4.0-11.0) K/uL RBC (4.50-5.90) M/uL Hgb (13.0-17.0) g/dL Hct (38.0-50.0) % MCV (80.0-98.0) fL MCH (27.0-32.0) pg MCHC (31.0-37.0) g/dL RDW Std Deviation (28.0-62.0) fl RDW Coeff of Christos (11.0-15.0) % Plt Count (150-400) K/uL MPV (7.40-12.00) fL Neut % (Auto) (48.0-80.0) % Lymph % (Auto) (16.0-40.0) % Bent % (Auto) (0.0-15.0) % Eos % (Auto) (0.0-7.0) % Baso % (Auto) (0.0-1.5) % Neut # (Auto) (1.4-5.7) K/uL Lymph # (Auto) (0.6-2.4) K/uL Bent # (Auto) (0.0-0.8) K/uL Eos # (Auto) (0.0-0.7) K/uL Baso # (Auto) (0.0-0.1) K/uL Nucleated RBC % /100WBC Nucleated RBCs # K/uL INR D-Dimer, Quantitative (0.0-0.50) mg/L FEU Sodium (136-148) mmol/L Potassium (3.5-5.1) mmol/L Chloride (98-107) mmol/L Carbon Dioxide (21.0-32.0) mmol/L BUN (7.0-18.0) mg/dL Creatinine (0.8-1.3) mg/dL Est Cr Clr Drug Dosing mL/min Estimated GFR (MDRD) ml/min Glucose (74-106) mg/dL Calcium (8.5-10.1) mg/dL Total Bilirubin (0.2-1.0) mg/dL AST (15-37) IU/L ALT (14-63) IU/L Alkaline Phosphatase (46-116) U/L Troponin I (0.000-0.056) ng/mL B-Natriuretic Peptide 671 H (<100) PG/ML Total Protein (6.4-8.2) g/dL Albumin (3.4-5.0) g/dL Globulin (2.6-4.0) g/dL Albumin/Globulin Ratio (0.9-1.6) SARS-CoV-2 RNA (ANALI) NEGATIVE (NEGATIVE) Meds: Medications Generic Name Dose Route Start Last Admin Trade Name Freq PRN Reason Stop Dose Admin Sodium Chloride 10 ml 01/01/21 09:06 01/01/21 09:27 Sodium Chloride 0.9% 10 Ml Syringe FLUSH 10 ml ASDIRECTED PRN Administration Keep Vein Open Sodium Chloride 2.5 ml 01/01/21 09:06 01/01/21 09:27 Sodium Chloride 0.9% 2.5 Ml Syringe FLUSH 2.5 ml ASDIRECTED PRN Administration Keep Vein Open Discontinued Medications Generic Name Dose Route Start Last Admin Trade Name Freq PRN Reason Stop Dose Admin Furosemide 40 mg 01/01/21 10:38 01/01/21 10:44 Furosemide 40 Mg/4 Ml Vial IVPUSH 01/01/21 10:39 40 mg NOW ONE Administration Departure - Departure Time of Disposition: 10:50 Disposition: Refer to Observation Condition: Good Clinical Impression: Acute coronary syndrome, CHF (congestive heart failure) - Discharge Information Forms: ED Department Discharge Sepsis Event Note (ED) - Evaluation Sepsis Screening Result: No Definite Risk - Focused Exam Vital Signs: Vital Signs Temp Pulse Resp BP Pulse Ox 01/01/21 10:31 82 16 109/57 L 96 01/01/21 10:02 82 16 90/72 96 01/01/21 09:32 80 15 95/67 96 01/01/21 09:00 97.6 F 82 16 119/72 98 - My Orders Last 24 Hours: My Active Orders 01/01/21 09:06 EKG Documentation Completion [RC] AM Sodium Chloride 0.9% [Saline Flush] 10 ml FLUSH ASDIRECTED PRN Sodium Chloride 0.9% [Saline Flush] 2.5 ml FLUSH ASDIRECTED PRN Saline Lock Insert [OM.PC] Stat 01/01/21 10:49 Patient Status [ADT] Routine - Assessment/Plan Last 24 Hours: My Active Orders 01/01/21 09:06 EKG Documentation Completion [RC] AM Sodium Chloride 0.9% [Saline Flush] 10 ml FLUSH ASDIRECTED PRN Sodium Chloride 0.9% [Saline Flush] 2.5 ml FLUSH ASDIRECTED PRN Saline Lock Insert [OM.PC] Stat 01/01/21 10:49 Patient Status [ADT] Routine
--- NOTE | 2021-01-01 10:25 | CR ---
For Patients: As a result of the Century Cures Act, medical imaging exams and procedure reports are released immediately into your electronic medical record. You may view this report before your referring provider. If you have questions, please contact your health care provider. INDICATION: Chest pain. COMPARISON: Chest radiograph July 12, 2015. TECHNIQUE: Portable AP chest. FINDINGS: Normal size cardiac silhouette .clear lung martell without evidence of acute pneumonic infiltrates or CHF. Implanted cardiac defibrillator in place . No pneumothorax or pleural effusion. IMPRESSION: 1. Cardiac pacer in place. 2. No acute pathology. 3. No interval change. Dictated by Keo Abbott MD @ 01/01/2021 10:24:[address] Keo Abbott @ Jan 01 2021 10:24AM
[2021-01-01] MEDS ORDERED: Furosemide 40 MG/4 ML VIAL IVPUSH ONE ×2 (10:38→18:00)
[2021-01-01] MEDS ORDERED: Ondansetron 4 MG/2 ML SDV IVPUSH PRN (11:45)
[2021-01-01] MEDS ORDERED: Acetaminophen 325 MG Tab PO PRN (11:45)
--- NOTE | 2021-01-01 11:52 | PCM.HP.2 ---
H&P History of Present Illness - General Date of Service: 01/01/21 Admit Problem/Dx: Admission Diagnosis/Problem Admission Diagnosis/Problem chest pain rule out acute coronary syndrome Source of Information: Patient, Significant Other ( at bedside) History Limitations: Reports: No Limitations - History of Present Illness Initial Comments - Free Text/Narative: This 75-year-old male with past medical history of hypertension, CAD, large anterior wall WI with delayed revascularization in 2012, ICD placement approximately 10 years ago, TIA, paroxysmal A. fib on Coumadin, ischemic cardiomyopathy with severe LV systolic dysfunction presented to the ER with complaints of left and right-sided chest pain that started over the weekend. He reports that the chest pain started after him and his were working on outdoor sprinkles when he had to get down on his hands and knees to do some work. He reports he was unable to stand up after that due to severe fatigue and shortness of breath. He reports that the pain in his chest starts on the left side and spreads to his left sometimes sharp in nature denies any associated diaphoresis or radiation of pain. He reports he does get extremely short of breath during these moments and has taken some nitro at home with mild improvement. He reports he has not seen his sales audit clerk in a few months but does see Dr. Joseph from [facility] in [place]. He reports he has not had a stress test in few years and has not had an echo in the last 1 to 2 years. He reports he otherwise has been feeling well at home. He normally is able to walk at least 50 feet without becoming short of breath but does have limited activity due to dyspnea. Reports that at times he does have shortness of breath with lying flat denies any peripheral edema. He denies any fevers or chills. No nausea vomiting diarrhea or dysuria. He denies any back pain and no neurological concerns. He denies any history of tobacco use, alcohol use and no recreational drug use. He does report that his mother and brother had significant cardiac issues unsure of what exactly they were. In the ER vital signs stable. He was given Lasix 40 mg IV in the ER. Blood pressure did dip to 95/67 but is steadily improved and is now 116/82. Patient remains on room air satting 96%. Has intermittent signs of dyspnea. No leukocytosis noted INR 2.79 D-dimer 0.36 sodium 139 potassium 4 creatinine 1.6 which is at baseline BUN 18 blood sugars 180s. Troponin negative BNP elevated at 671. Covid swab negative chest x-ray in the ER revealed no acute pathology c lear lung martell with no evidence of infiltrates or CHF. ICD in place. EKG revealed sinus rhythm with no specific ST-T wave abnormalities or ischemic changes. History of anterior septal wall WI likely. Heart rate 82. Patient will be admitted for chest pain rule out ACS. - Related Data Allergies/Adverse Reactions: Allergies Allergy/AdvReac Type Severity Reaction Status Date / Time No Known Allergies Allergy Verified 01/01/21 13:19 Home Medications: Home Meds Allopurinol [Zyloprim] 300 mg PO DAILY 01/01/21 [History] Colchicine 1.2 mg PO ONETIME PRN 01/01/21 [History] Eplerenone [Inspra] 12.5 mg PO DAILY 01/01/21 [History] Ezetimibe 10 mg PO DAILY 01/01/21 [History] Furosemide 20 mg PO BID 01/01/21 [History] Insulin Detemir [Levemir Flextouch] 20 units SQ ASDIRECTED 01/01/21 [History] Omeprazole 20 mg PO DAILY 01/01/21 [History] Pravastatin [Pravachol] 80 mg PO DAILY 01/01/21 [History] Warfarin Sodium [Jantoven] 5 mg PO ASDIRECTED 01/01/21 [History] carvediloL [Carvedilol] 25 mg PO BID 01/01/21 [History] ramipriL [Ramipril] 2.5 mg PO DAILY 01/01/21 [History] sitaGLIPtin Phos/Metformin HCl [Janumet 50-1,000 MG] 50 - 1,000 mg PO BIDMEALS 01/01/21 [History] Past Medical History Cardiovascular History: Reports: Automatic Implantable Cardioverter Defibrillators, CAD, High Cholesterol, Pacemaker, Stents Respiratory History: Reports: Sleep Apnea Gastrointestinal History: Reports: None Musculoskeletal History: Reports: Back Pain, Chronic, Gout Other Musculoskeletal History: fx L elbow- continued numbness Neurological History: Reports: Headaches, Chronic, TIA Psychiatric History: Reports: Anxiety, Depression Endocrine/Metabolic History: Reports: Diabetes, Type II Hematologic History: Reports: None - Infectious Disease History Infectious Disease History: Reports: Chicken Pox, Mumps - Past Surgical History Cardiovascular Surgical History: Reports: Carotid Stents, Pacer, Percutaneous Transluminal Angioplasty Social & Family History - Family History Family Medical History: No Pertinent Family History - Tobacco Use Tobacco Use Status *Q: Never Tobacco User - Caffeine Use Caffeine Use: Reports: Tea - Alcohol Use Alcohol Use History: No - Recreational Drug Use Recreational Drug Use: No - Living Situation & Occupation Living situation: Reports: Occupation: Retired H&P Review of Systems - Review of Systems: Review Of Systems: See Below General: Reports: Fatigue. Denies: Fever, Chills HEENT: Reports: No Symptoms. Denies: Headaches, Sinus Congestion, Vertigo Pulmonary: Reports: Shortness of Breath (Intermittent). Denies: Wheezing, Cough Cardiovascular: Reports: Chest Pain (Reproducible on left side with palpation), Dyspnea on Exertion, Orthopnea. Denies: Edema, Lightheadedness Gastrointestinal: Reports: No Symptoms, Constipation. Denies: Abdominal Pain, Black Stool, Bloody Stool, Diarrhea, Nausea, Vomiting Genitourinary: Reports: No Symptoms. Denies: Dysuria, Frequency, Burning Musculoskeletal: Reports: No Symptoms Skin: Reports: No Symptoms Psychiatric: Reports: No Symptoms Neurological: Reports: No Symptoms Hematologic/Lymphatic: Reports: No Symptoms Immunologic: Reports: No Symptoms Exam - Exam Exam: See Below - Vital Signs Vital Signs: Last Vital Signs Temp 97.6 F 01/01/21 09:00 Pulse 82 01/01/21 10:31 Resp 16 01/01/21 10:31 BP 109/57 L 01/01/21 10:31 Pulse Ox 96 01/01/21 10:31 Weight: 111.13 kg - Exam Quality Assessment: DVT Prophylaxis (Coumadin). No: Supplemental Oxygen General: Alert, Oriented, Cooperative HEENT: Conjunctiva Clear, Mucosa Moist & [place], Posterior Pharynx Clear Neck: Supple Lungs: Decreased Breath Sounds (Bibasilar). No: Normal Respiratory Effort (Intermittent dyspnea noted during speech) Cardiovascular: Regular Rate, Regular Rhythm, Normal S1, Normal S2, Other (ICD noted to left chest). No: Systolic Murmur GI/Abdominal Exam: Normal Bowel Sounds, Soft, Non-Tender Back Exam: Normal Inspection, Full Range of Motion Extremities: Normal Inspection, Normal Range of Motion, Non-Tender, No Pedal Edema Neuro Extensive - Mental Status: Alert, Oriented x3 Neuro Extensive - Motor, Sensory, Reflexes: CN II-XII Intact Psychiatric: Alert, Normal Affect, Normal Mood - Patient Data Lab Results Last 24 hrs: Laboratory Results - last 24 hr 01/01/21 01/01/21 01/01/21 Range/Units 08:57 08:57 08:57 WBC 10.07 (4.0-11.0) K/uL RBC 4.31 L (4.50-5.90) M/uL Hgb 13.4 (13.0-17.0) g/dL Hct 40.3 (38.0-50.0) % MCV 93.5 (80.0-98.0) fL MCH 31.1 (27.0-32.0) pg MCHC 33.3 (31.0-37.0) g/dL RDW Std Deviation 51.1 (28.0-62.0) fl RDW Coeff of Christos 15 (11.0-15.0) % Plt Count 188 (150-400) K/uL MPV 11.40 (7.40-12.00) fL Neut % (Auto) 71.2 (48.0-80.0) % Lymph % (Auto) 17.8 (16.0-40.0) % [place] % (Auto) 8.4 (0.0-15.0) % Eos % (Auto) 2.1 (0.0-7.0) % Baso % (Auto) 0.5 (0.0-1.5) % Neut # (Auto) 7.2 H (1.4-5.7) K/uL Lymph # (Auto) 1.8 (0.6-2.4) K/uL [place] # (Auto) 0.9 H (0.0-0.8) K/uL Eos # (Auto) 0.2 (0.0-0.7) K/uL Baso # (Auto) 0.1 (0.0-0.1) K/uL Nucleated RBC % 0.0 /100WBC Nucleated RBCs # 0 K/uL INR 2.79 D-Dimer, Quantitative 0.36 (0.0-0.50) mg/L FEU Sodium 139 (136-148) mmol/L Potassium 4.0 (3.5-5.1) mmol/L Chloride 103 (98-107) mmol/L Carbon Dioxide 23.9 (21.0-32.0) mmol/L BUN 18 (7.0-18.0) mg/dL Creatinine 1.6 H (0.8-1.3) mg/dL Est Cr Clr Drug Dosing 42.46 mL/min Estimated GFR (MDRD) 42.6 ml/min Glucose 189 H (74-106) mg/dL Calcium 8.7 (8.5-10.1) mg/dL Total Bilirubin 0.9 (0.2-1.0) mg/dL AST 14 L (15-37) IU/L ALT 18 (14-63) IU/L Alkaline Phosphatase 80 (46-116) U/L Troponin I < 0.050 (0.000-0.056) ng/mL B-Natriuretic Peptide (<100) PG/ML Total Protein 7.8 (6.4-8.2) g/dL Albumin 3.4 (3.4-5.0) g/dL Globulin 4.4 H (2.6-4.0) g/dL Albumin/Globulin Ratio 0.8 L (0.9-1.6) SARS-CoV-2 RNA (ANALI) (NEGATIVE) 01/01/21 01/01/21 Range/Units 08:57 09:25 WBC (4.0-11.0) K/uL RBC (4.50-5.90) M/uL Hgb (13.0-17.0) g/dL Hct (38.0-50.0) % MCV (80.0-98.0) fL MCH (27.0-32.0) pg MCHC (31.0-37.0) g/dL RDW Std Deviation (28.0-62.0) fl RDW Coeff of Christos (11.0-15.0) % Plt Count (150-400) K/uL MPV (7.40-12.00) fL Neut % (Auto) (48.0-80.0) % Lymph % (Auto) (16.0-40.0) % [place] % (Auto) (0.0-15.0) % Eos % (Auto) (0.0-7.0) % Baso % (Auto) (0.0-1.5) % Neut # (Auto) (1.4-5.7) K/uL Lymph # (Auto) (0.6-2.4) K/uL [place] # (Auto) (0.0-0.8) K/uL Eos # (Auto) (0.0-0.7) K/uL Baso # (Auto) (0.0-0.1) K/uL Nucleated RBC % /100WBC Nucleated RBCs # K/uL INR D-Dimer, Quantitative (0.0-0.50) mg/L FEU Sodium (136-148) mmol/L Potassium (3.5-5.1) mmol/L Chloride (98-107) mmol/L Carbon Dioxide (21.0-32.0) mmol/L BUN (7.0-18.0) mg/dL Creatinine (0.8-1.3) mg/dL Est Cr Clr Drug Dosing mL/min Estimated GFR (MDRD) ml/min Glucose (74-106) mg/dL Calcium (8.5-10.1) mg/dL Total Bilirubin (0.2-1.0) mg/dL AST (15-37) IU/L ALT (14-63) IU/L Alkaline Phosphatase (46-116) U/L Troponin I (0.000-0.056) ng/mL B-Natriuretic Peptide 671 H (<100) PG/ML Total Protein (6.4-8.2) g/dL Albumin (3.4-5.0) g/dL Globulin (2.6-4.0) g/dL Albumin/Globulin Ratio (0.9-1.6) SARS-CoV-2 RNA (ANALI) NEGATIVE (NEGATIVE) Result Diagrams: 01/01/21 08:57 01/01/21 08:57 Sepsis Event Note - Evaluation Sepsis Screening Result: No Definite Risk - Focused Exam Vital Signs: Vital Signs Temp Pulse Resp BP Pulse Ox 01/01/21 10:31 82 16 109/57 L 96 01/01/21 10:02 82 16 90/72 96 01/01/21 09:32 80 15 95/67 96 01/01/21 09:00 97.6 F 82 16 119/72 98 - Problem List (1) Chest pain SNOMED Code(s): 26996037 ICD Code: R07.9 - CHEST PAIN, UNSPECIFIED Status: Acute Current Visit: Y es (2) CHF (congestive heart failure) SNOMED Code(s): 49022471 ICD Code: I50.9 - HEART FAILURE, UNSPECIFIED Status: Suspected Current Visit: Yes Qualifiers: Heart failure type: systolic Heart failure chronicity: acute on chronic Qualified Code(s): I50.23 - Acute on chronic systolic (congestive) heart failure (3) Hypertension SNOMED Code(s): 15244981 ICD Code: I10 - ESSENTIAL (PRIMARY) HYPERTENSION Status: Chronic Current Visit: Yes Qualifiers: Hypertension type: essential hypertension Qualified Code(s): I10 - Essential (primary) hypertension (4) CAD (coronary artery disease) SNOMED Code(s): 82456239 ICD Code: I25.10 - ATHSCL HEART DISEASE OF [place] CORONARY ARTERY W/O ANG PCTRS Status: Chronic Current Visit: Yes (5) Adequate anticoagulation on anticoagulant therapy SNOMED Code(s): 064454984, 150806453 ICD Code: Z79.01 - RETIREMENT (CURRENT) USE OF ANTICOAGULANTS Status: Tooling Inspector [place] Current Visit: Yes (6) ICD (implantable cardioverter-defibrillator) in place SNOMED Code(s): 724117224 ICD Code: Z95.810 - PRESENCE OF AUTOMATIC (IMPLANTABLE) CARDIAC DEFIBRILLATOR Status: Chronic Current Visit: Yes (7) DM type 2 (diabetes mellitus, type 2) SNOMED Code(s): 59736705 ICD Code: E11.9 - TYPE 2 DIABETES MELLITUS WITHOUT COMPLICATIONS Status: Chronic Current Visit: Yes Qualifiers: Diabetes mellitus prison insulin use: with predatory animal exterminator use Diabetes mellitus complication status: with circulatory complication Diabetes mellitus complication detail: with other circulatory complications Qualified Code(s): E11.59 - Type 2 diabetes mellitus with other circulatory complications; Z79.4 - FPC (current) use of insulin (8) Ischemic cardiomyopathy SNOMED Code(s): 836602322 ICD Code: I25.5 - ISCHEMIC CARDIOMYOPATHY Status: Chronic Current Visit: Yes Problem List Initiated/Reviewed/Updated: Yes Orders Last 24hrs: Active Orders 24 hr Category Date Time Status Patient Status [ADT] Routine ADT 01/01/21 10:49 Active EKG Documentation Completion [RC] AM Care 01/01/21 09:06 Active Height and Weight [RC] DAILY Care 01/01/21 11:45 Active Intake and Output [RC] QSHIFT Care 01/01/21 11:45 Active Oxygen Therapy [RC] PRN Care 01/01/21 11:45 Active Telemetry Monitoring [Cardiac Monitoring] [RC] Q8H Care 01/01/21 11:48 Active Up With Assistance [RC] ASDIRECTED Care 01/01/21 11:45 Active VTE/DVT Education [RC] PER UNIT ROUTINE Care 01/01/21 11:45 Active Vital Signs [RC] Q4H Care 01/01/21 11:45 Active Heart Healthy Diet [DIET] Diet 01/01/21 Lunch Active TROPONIN I [CHEM] Q6H Lab 01/01/21 14:00 Ordered TROPONIN I [CHEM] Q6H Lab 01/01/21 20:00 Ordered Acetaminophen [TylenoL] Med 01/01/21 11:45 Ordered 650 mg PO Q4H PRN Ondansetron [Zofran] Med 01/01/21 11:45 Ordered 4 mg IVPUSH Q4H PRN Sodium Chloride 0.9% [Saline Flush] Med 01/01/21 11:45 Ordered 2.5 ml FLUSH ASDIRECTED PRN Saline Lock Insert [OM.PC] Routine Oth 01/01/21 11:45 Ordered Medication Orders Acetaminophen (Acetaminophen 325 Mg Tab) 650 mg PO Q4H PRN PRN Reason: Pain (Mild 1-3)/fever Ondansetron HCl (Ondansetron 4 Mg/2 Ml Sdv) 4 mg IVPUSH Q4H PRN PRN Reason: Nausea Sodium Chloride (Sodium Chloride 0.9% 2.5 Ml Syringe) 2.5 ml FLUSH ASDIRECTED PRN PRN Reason: Keep Vein Open Assessment/Plan Comment:: 75-year-old male admitted with chest pain and suspected CHF. 1. Chest pain -Monitor on telemetry -Trend troponins every 6hrs x2 -Pain is intermittent also reproducible on palpation -Patient having increased shortness of breath, JVD noted on exam -We will obtain records from Dr. Joseph, sales audit clerk at [facility] -Obtain echo -Obtain lipid panel, TSH and A1c if records do not show recent testing. 2. Acute systolic CHF/ischemic cardiomyopathy -Patient and unclear if patient has current diagnosis of CHF, feels the last echo was done 1 to 2 years ago -Takes Lasix daily at home -Obtain echo -Given 1 dose of Lasix in the ER will repeat 40 mg IV tonight -Daily weights, strict I's and O's low-sodium diet -Patient reports dry weight is approximately 250 pounds. -Reviewed notes from Dr. Joseph, appears patient has ischemic cardiomyopathy with severe left ventricular systolic dysfunction. He is quite sedentary at baseline. Last EF 2020 less than 20% 3. DM type II -Continue Levemir at bedtime -NovoLog sliding scale with meals -ADA diet 4. Hypertension/A. fib/anticoagulation/CAD/CKD stage II -Continue carvedilol and ramipril along with statin and Coumadin. - Monitor INR daily VTE prophylaxis: Coumadin CODE STATUS: Full code Dispo: 1 to 2 days pending improvement - Mortality Measure Prognosis:: Good
[2021-01-01] MEDS ORDERED: Glucagon,Human Recombinant 1 MG Vial IM PRN (11:53)
[2021-01-01] MEDS ORDERED: 50% Dextrose in Water 50 ML Syringe IVPUSH PRN (11:53)
[2021-01-01] MEDS: Insulin Aspart 100 Units/ML 3 ML Pen SUBCUT SCH ×2 (13:50→17:53)
[2021-01-01 15:37] LABS: HEMOGLOBIN A1C 7.2 %
[2021-01-01] MEDS ORDERED: Warfarin 5 MG Tab PO SCH (16:00)
[2021-01-01] MEDS ORDERED: Insulin Detemir 100 Units/ML 3 ML Pen SUBCUT SCH (21:00)
[2021-01-01] MEDS ORDERED: Pravastatin 40 MG Tab PO SCH (21:00)
[2021-01-01] MEDS: Carvedilol 25 MG Tab PO SCH (21:45)
[2021-01-02 06:22] LABS: CARBON DIOXIDE,CO2 25.1 mmol/L (21.0-32.0); POTASSIUM,K 3.5 mmol/L (3.5-5.1)
[2021-01-02] MEDS: Omeprazole 20 MG Cap.CR PO SCH ×2 (06:28→06:30)
[2021-01-02] MEDS: Insulin Aspart 100 Units/ML 3 ML Pen SUBCUT SCH ×2 (07:43→12:33)
[2021-01-02] MEDS ORDERED: Furosemide 40 MG/4 ML VIAL IVPUSH SCH (08:00)
[2021-01-02] MEDS: Carvedilol 25 MG Tab PO SCH (08:01)
[2021-01-02] MEDS ORDERED: Eplerenone [Inspra] 25 MG Tablet PO SCH (09:00)
[2021-01-02] MEDS ORDERED: Colchicine 0.6 MG Tab PO PRN (09:00)
[2021-01-02] MEDS ORDERED: Ezetimibe 10 MG Tab PO SCH (09:00)
[2021-01-02] MEDS ORDERED: Allopurinol 300 MG Tab PO SCH (09:00)
--- NOTE | 2021-01-02 12:02 | PCM.DCSUM1 ---
Discharge Summary - Hospital Course Brief History: This 75-year-old male with past medical history of hypertension, CAD, large anterior wall WI with delayed revascularization in 2012, ICD placement approximately 10 years ago, TIA, paroxysmal A. fib on Coumadin, ischemic cardiomyopathy with severe LV systolic dysfunction presented to the ER with complaints of left and right-sided chest pain that started over the weekend. He reports that the chest pain started after him and his were working on outdoor sprinkles when he had to get down on his hands and knees to do some work. He reports he was unable to stand up after that due to severe fatigue and shortness of breath. He reports that the pain in his chest starts on the left side and spreads to his left sometimes sharp in nature denies any associated diaphoresis or radiation of pain. He reports he does get extremely short of breath during these moments and has taken some nitro at home with mild improvement. He reports he has not seen his compress engineer in a few months but does see Dr. Joseph from [facility] in [place]. He reports he has not had a stress test in few years and has not had an echo in the last 1 to 2 years. He reports he otherwise has been feeling well at home. He normally is able to walk at least 50 feet without becoming short of breath but does have limited activity due to dyspnea. Reports that at times he does have shortness of breath with lying flat denies any peripheral edema. He denies any fevers or chills. No nausea vomiting diarrhea or dysuria. He denies any back pain and no neurological concerns. He denies any history of tobacco use, alcohol use and no recreational drug use. He does report that his mother and brother had significant cardiac issues unsure of what exactly they were. In the ER vital signs stable. He was given Lasix 40 mg IV in the ER. Blood pressure did dip to 95/67 but is steadily improved and is now 116/82. Patient remains on room air satting 96%. Has intermittent signs of dyspnea. No leukocytosis noted INR 2.79 D-dimer 0.36 sodium 139 potassium 4 creatinine 1.6 which is at baseline BUN 18 blood sugars 180s. Troponin negative BNP elevated at 671. Covid swab negative chest x-ray in the ER revealed no acute pathology clear lung martell with no evidence of infiltrates or CHF. ICD in place. EKG revealed sinus rhythm with no specific ST-T wave abnormalities or ischemic changes. History of anterior septal wall WI likely. Heart rate 82. Patient will be admitted for chest pain rule out ACS. - Discharge Data Discharge Date: 01/02/21 Discharge Disposition: Home, Self-Care 01 Condition: Stable - Referral to Home Health Primary Care Physician: PCP None - Discharge Diagnosis/Problem(s) (1) Chest pain SNOMED Code(s): 46347926 ICD Code: R07.9 - CHEST PAIN, UNSPECIFIED Status: Acute (2) CHF (congestive heart failure) SNOMED Code(s): 83129806 ICD Code: I50.9 - HEART FAILURE, UNSPECIFIED Status: Suspected Qualifiers: Heart failure type: systolic Heart failure chronicity: acute on chronic Qualified Code(s): I50.23 - Acute on chronic systolic (congestive) heart failure (3) Hypertension SNOMED Code(s): 17491232 ICD Code: I10 - ESSENTIAL (PRIMARY) HYPERTENSION Status: Chronic Qualifiers: Hypertension type: essential hypertension Qualified Code(s): I10 - Essential (primary) hypertension (4) CAD (coronary artery disease) SNOMED Code(s): 40178341 ICD Code: I25.10 - ATHSCL HEART DISEASE OF [place] CORONARY ARTERY W/O ANG PCTRS Status: Chronic (5) Adequate anticoagulation on anticoagulant therapy SNOMED Code(s): 443789399, 673180609 ICD Code: Z79.01 - DOBIE MAN (CURRENT) USE OF ANTICOAGULANTS Status: Chronic (6) ICD (implantable cardioverter-defibrillator) in place SNOMED Code(s): 645654990 ICD Code: Z95.810 - PRESENCE OF AUTOMATIC (IMPLANTABLE) CARDIAC DEFIBRILLATOR Status: Chronic (7) DM type 2 (diabetes mellitus, type 2) SNOMED Code(s): 22631789 ICD Code: E11.9 - TYPE 2 DIABETES MELLITUS WITHOUT COMPLICATIONS Status: Chronic Qualifiers: Diabetes mellitus custodial insulin use: with terminal clerk use Diabetes mellitus complication status: with circulatory complication Diabetes mellitus complication detail: with other circulatory complications Qualified Code(s): E11.59 - Type 2 diabetes mellitus with other circulatory complications; Z79.4 - custodial (current) use of insulin (8) Ischemic cardiomyopathy SNOMED Code(s): 240659847 ICD Code: I25.5 - ISCHEMIC CARDIOMYOPATHY Status: Chronic - Patient Summary/Data Hospital Course: Admission diagnoses Chest pain Discharge diagnoses Chest pain ACS ruled out likely musculoskeletal Other PMH HTN CHF, systolic with severely decreased EF Ischemic cardiomyopathy CAD Diabetes type 2 ICD A. fib Anticoagulation with Coumadin Elías was admitted to [facility] to chest pain and known to have significant cardiovascular disease. Patient was monitored on telemetry and found to have no acute ischemic changes. Troponins trended x3 all returned negative. Patient pain very musculoskeletal as patient has reproducible pain to all areas of chest and with taking a deep breath. Patient had overexerted himself fixing sprinklers at home over the weekend prior to coming to the ER. Patient was noted to have possible mild overload with positive JVD signs. No peripheral edema. He was given extra doses of Lasix IV with good diuresis and improvement in dyspnea. Echo obtained during stay report pending on discharge. BNP was marcio vated at 671 unsure of baseline. Patient is very eager for discharge home today. Patient encouraged to keep activity low no strenuous or heavy lifting. Patient has follow-up with cardiology clinic next week would encourage possible further cardiac evaluation with stress test but will leave this up to his cardiology team. Patient will be discharged home on all current home medications with no changes. He is to return to the ER/clinic if concerns should arise monitor. - Patient Instructions Diet: Heart Healthy Diet, Low Sodium, Diabetic Diet Fluid Restriction: 2000 mL Showering/Bathing: May Shower Notify Provider of: Fever, Increased Pain, Swelling and Redness, Drainage, [place] sea and/or Vomiting - Discharge Plan *PRESCRIPTION DRUG MONITORING PROGRAM REVIEWED*: Not Applicable *COPY OF PRESCRIPTION DRUG MONITORING REPORT IN PATIENT YOSSI: Not Applicable Home Medications: Home Meds Allopurinol [Zyloprim] 300 mg PO DAILY 01/01/21 [History] Colchicine 1.2 mg PO ONETIME PRN 01/01/21 [History] Eplerenone [Inspra] 12.5 mg PO DAILY 01/01/21 [History] Ezetimibe 10 mg PO DAILY 01/01/21 [History] Furosemide 20 mg PO BID 01/01/21 [History] Insulin Detemir [Levemir Flextouch] 20 units SQ ASDIRECTED 01/01/21 [History] Omeprazole 20 mg PO DAILY 01/01/21 [History] Pravastatin [Pravachol] 80 mg PO DAILY 01/01/21 [History] Warfarin Sodium [Jantoven] 5 mg PO MOFR 01/01/21 [History] Warfarin [Coumadin] 7.5 mg PO SUTUWETHSA 01/01/21 [History] carvediloL [Carvedilol] 25 mg PO BID 01/01/21 [History] ramipriL [Ramipril] 2.5 mg PO DAILY 01/01/21 [History] sitaGLIPtin Phos/Metformin HCl [Janumet 50-1,000 MG] 50 - 1,000 mg PO BIDMEALS 01/01/21 [History] Oxygen Therapy Mode: Room Air Patient Handouts: Nonspecific Chest Pain, Adult, [id number] Referrals: Melissa Perera, STUDENT SUPPORT SERVICES DIRECTOR [Ordering Only Provider] - 01/10/21 4:00 am - Discharge Summary/Plan Comment DC Time >30 min.: No - Patient Data Vitals - Most Recent: Last Vital Signs Temp 97 F 01/02/21 07:57 Pulse 72 01/02/21 08:01 Resp 16 01/02/21 07:57 BP 118/72 01/02/21 08:01 Pulse Ox 96 01/02/21 07:57 Weight - Most Recent: 110.722 kg I&O - Last 24 hours: Intake & Output 01/01/21 01/02/21 01/02/21 22:59 06:59 14:59 Intake Total 150 700 Output Total 300 800 Balance -150 -100 Lab Results - Last 24 hrs: Laboratory Results - last 24 hr 01/01/21 01/01/21 01/01/21 Range/Units 12:57 14:00 14:00 INR Sodium (136-148) mmol/L Potassium (3.5-5.1) mmol/L Chloride (98-107) mmol/L Carbon Dioxide (21.0-32.0) mmol/L BUN (7.0-18.0) mg/dL Creatinine (0.8-1.3) mg/dL Est Cr Clr Drug Dosing mL/min Estimated GFR (MDRD) ml/min Glucose (74-106) mg/dL POC Glucose 175 H (70-99) mg/dL Hemoglobin A1c (4.5 - 6.2) % Calcium (8.5-10.1) mg/dL Troponin I < 0.050 (0.000-0.056) ng/mL Triglycerides (0-200) mg/dL Cholesterol (50-200) mg/dL LDL Cholesterol, Calc (60-180) mg/dL VLDL Cholesterol (5-55) mg/dL HDL Cholesterol (40-60) mg/dL Cholesterol/HDL Ratio (3.3-6.0) TSH 3rd Generation 1.80 (0.36-3.74) uIU/mL 01/01/21 01/01/21 01/01/21 Range/Units 14:00 17:50 20:10 INR Sodium (136-148) mmol/L Potassium (3.5-5.1) mmol/L Chloride (98-107) mmol/L Carbon Dioxide (21.0-32.0) mmol/L BUN (7.0-18.0) mg/dL Creatinine (0.8-1.3) mg/dL Est Cr Clr Drug Dosing mL/min Estimated GFR (MDRD) ml/min Glucose (74-106) mg/dL POC Glucose 125 H (70-99) mg/dL Hemoglobin A1c 7.2 H (4.5 - 6.2) % Calcium (8.5-10.1) mg/dL Troponin I < 0.050 (0.000-0.056) ng/mL Triglycerides (0-200) mg/dL Cholesterol (50-200) mg/dL LDL Cholesterol, Calc (60-180) mg/dL VLDL Cholesterol (5-55) mg/dL HDL Cholesterol (40-60) mg/dL Cholesterol/HDL Ratio (3.3-6.0) TSH 3rd Generation (0.36-3.74) uIU/mL 01/01/21 01/02/21 01/02/21 Range/Units 21:50 05:38 05:38 INR 2.29 Sodium 139 (136-148) mmol/L Potassium 3.5 (3.5-5.1) mmol/L Chloride 104 (98-107) mmol/L Carbon Dioxide 25.1 (21.0-32.0) mmol/L BUN 23 H (7.0-18.0) mg/dL Creatinine 1.5 H (0.8-1.3) mg/dL Est Cr Clr Drug Dosing 45.29 mL/min Estimated GFR (MDRD) 45.9 ml/min Glucose 177 H (74-106) mg/dL POC Glucose 165 H (70-99) mg/dL Hemoglobin A1c (4.5 - 6.2) % Calcium 8.5 (8.5-10.1) mg/dL Troponin I (0.000-0.056) ng/mL Triglycerides 133 (0-200) mg/dL Cholesterol 110 (50-200) mg/dL LDL Cholesterol, Calc 43 L (60-180) mg/dL VLDL Cholesterol 26 (5-55) mg/dL HDL Cholesterol 40 (40-60) mg/dL Cholesterol/HDL Ratio 2.8 L (3.3-6.0) TSH 3rd Generation (0.36-3.74) uIU/mL 01/02/21 Range/Units 06:26 INR Sodium (136-148) mmol/L Potassium (3.5-5.1) mmol/L Chloride (98-107) mmol/L Carbon Dioxide (21.0-32.0) mmol/L BUN (7.0-18.0) mg/dL Creatinine (0.8-1.3) mg/dL Est Cr Clr Drug Dosing mL/min Estimated GFR (MDRD) ml/min Glucose (74-106) mg/dL POC Glucose 148 H (70-99) mg/dL Hemoglobin A1c (4.5 - 6.2) % Calcium (8.5-10.1) mg/dL Troponin I (0.000-0.056) ng/mL Triglycerides (0-200) mg/dL Cholesterol (50-200) mg/dL LDL Cholesterol, Calc (60-180) mg/dL VLDL Cholesterol (5-55) mg/dL HDL Cholesterol (40-60) mg/dL Cholesterol/HDL Ratio (3.3-6.0) TSH 3rd Generation (0.36-3.74) uIU/mL Med Orders - Current: Current Medications Acetaminophen (Acetaminophen 325 Mg Tab) 650 mg PO Q4H PRN PRN Reason: Pain (Mild 1-3)/fever Allopurinol (Allopurinol 300 Mg Tab) 300 mg PO DAILY [facility] Last Admin: 01/02/21 08:01 Dose: 300 mg Documented by: Carvedilol (Carvedilol 25 Mg Tab) 25 mg PO BID [facility] Last Admin: 01/02/21 08:01 Dose: 25 mg Documented by: Colchicine (Colchicine 0.6 Mg Tab) 0 mg PO ONETIME PRN PRN Reason: GOUT FLARE Dextrose/Water (50% Dextrose In Water 50 Ml Syringe) 50 ml IVPUSH ASDIRECTED PRN PRN Reason: Hypoglycemia Ezetimibe (Ezetimibe 10 Mg Tab) 10 mg PO DAILY [facility] Last Admin: 01/02/21 08:20 Dose: 10 mg Documented by: Furosemide (Furosemide 40 Mg/4 Ml Vial) 40 mg IVPUSH BIDDIURETIC [facility] Last Admin: 01/02/21 08:02 Dose: 40 mg Documented by: Glucagon (Glucagon,Human Recombinant 1 Mg Vial) 1 mg IM ASDIRECTED PRN PRN Reason: Hypoglycemia Insulin Aspart (Insulin Aspart 100 Units/Ml 3 Ml Pen) 0 unit SUBCUT TIDAC [facility]; Protocol Last Admin: 01/02/21 07:43 Dose: Not Given Documented by: Insulin Detemir (Insulin Detemir 100 Units/Ml 3 Ml Pen) 20 unit SUBCUT BEDTIME [facility] Last Admin: 01/01/21 21:50 Dose: 20 units Documented by: Omeprazole (Omeprazole 20 Mg Cap.Cr) 20 mg PO ACBREAKFAST [facility] Last Admin: 01/02/21 06:30 Dose: 20 mg Documented by: Ondansetron HCl (Ondansetron 4 Mg/2 Ml Sdv) 4 mg IVPUSH Q4H PRN PRN Reason: Nausea Eplerenone [Inspra] (25 Mg Tablet) 1 each PO DAILY [facility] Last Admin: 01/02/21 08:02 Dose: Not Given Documented by: Pravastatin Sodium (Pravastatin 40 Mg Tab) 80 mg PO BEDTIME [facility] Last Admin: 01/01/21 21:45 Dose: 80 mg Documented by: Ramipril (Ramipril 2.5 Mg Cap) 2.5 mg PO DAILY [facility] Last Admin: 01/02/21 08:01 Dose: 2.5 mg Documented by: Sodium Chloride (Sodium Chloride 0.9% 2.5 Ml Syringe) 2.5 ml FLUSH ASDIRECTED PRN PRN Reason: Keep Vein Open Last Admin: 01/02/21 08:03 Dose: 2.5 ml Documented by: Warfarin Sodium (Warfarin Ask Dosing) 1 each PO DAILY@1400 [facility] Warfarin Sodium (Warfarin 2.5 Mg Tab) 7.5 mg PO DAILY@1400 [facility] Stop: 01/02/21 15:00 Discontinued Medications Furosemide (Furosemide 40 Mg/4 Ml Vial) 40 mg IVPUSH NOW ONE Stop: 01/01/21 10:39 Last Admin: 01/01/21 10:44 Dose: 40 mg Documented by: Furosemide (Furosemide 40 Mg/4 Ml Vial) 40 mg IVPUSH NOW ONE Stop: 01/01/21 18:01 Last Admin: 01/01/21 17:55 Dose: 40 mg Documented by: Sodium Chloride (Sodium Chloride 0.9% 10 Ml Syringe) 10 ml FLUSH ASDIRECTED PRN PRN Reason: Keep Vein Open Last Admin: 01/01/21 09:27 Dose: 10 ml Documented by: Sodium Chloride (Sodium Chloride 0.9% 2.5 Ml Syringe) 2.5 ml FLUSH ASDIRECTED PRN PRN Reason: Keep Vein Open Last Admin: 01/01/21 09:27 Dose: 2.5 ml Documented by: Warfarin Sodium (Warfarin 5 Mg Tab) 5 mg PO 01/01/21@1600 JOHNIE Stop: 01/01/21 18:00 Last Admin: 01/01/21 17:56 Dose: 5 mg Documented by: - Exam Quality Assessment: Denies: Supplemental Oxygen General: Reports: Alert, Oriented, Cooperative, No Acute Distress HEENT: Reports: Pupils Equal, Pupils Reactive, EOMI Neck: Reports: No JVD Lungs: Reports: Clear to Auscultation, Normal Respiratory Effort Cardiovascular: Reports: Regular Rate, Irregular Rhythm GI/Abdominal Exam: Normal Bowel Sounds, Soft, Non-Tender Back Exam: Reports: Normal Inspection, Full Range of Motion Extremities: Normal Inspection, Normal Range of Motion, Non-Tender, No Pedal Edema Neurological: Reports: No New Focal Deficit Psy/Mental Status: Reports: Alert, Normal Affect, Normal Mood
[2021-01-02] MEDS ORDERED: Warfarin 2.5 MG Tab PO SCH (14:00)
[2021-01-02 16:03] VITALS: BP 101/66; PULSE 64
--- NOTE | 2021-01-04 11:56 | ECHO ---
EXAM DATE: 01/01/21 PATIENT'S AGE: 75 The ECHO report has been scanned into [employer] and can be seen in this patient's EMR (Electronic Medical Record) under the REPORTS section. The report has also been scanned into PACS. MELINDA
== END 2021-01-02 12:45 | disposition home or self-care (01) ==
LOC: MW.ED 08:52 → MW.MS 10:49
PROVIDERS: ADMIT Internal Medicine; ATTEND Internal Medicine
DX: R07.9 Chest pain, unspecified (principal); I11.0 Hypertensive heart disease with heart failure; I50.23 Acute on chronic systolic (congestive) heart failure; I25.10 Atherosclerotic heart disease of native coronary artery without angina pectoris; E11.59 Type 2 diabetes mellitus with other circulatory complications; I25.5 Ischemic cardiomyopathy; I48.91 Unspecified atrial fibrillation; I25.2 Old myocardial infarction; Z79.4 Long term (current) use of insulin; Z95.810 Presence of automatic (implantable) cardiac defibrillator; Z79.01 Long term (current) use of anticoagulants; Z86.73 Personal history of transient ischemic attack (TIA), and cerebral infarction without residual deficits; Z79.899 Other long term (current) drug therapy; Z01.812 Encounter for preprocedural laboratory examination; Z20.822 Contact with and (suspected) exposure to COVID-19; Z98.890 Other specified postprocedural states
CPT/HCPCS: 36415; 71045; 80048; 80053; 80061; 82947; 83036; 83880; 84443; 84484; 85025; 85379; 85610; 93005; 93306; 96374; 96376; 99285; A9270; G0378; J1815; J1940; U0002

== ENCOUNTER 2022-12-04 21:31 | Emergency (ER) | payer MEDICARE, BC ==
[2022-12-04] MEDS ORDERED: Ondansetron 4 MG/2 ML SDV IVPUSH ONE (22:02)
[2022-12-04 22:24] LABS: BASOPHILS PERCENT AUTO 0.2 % (0.0-1.5); EOSINOPHILS ABSOLUTE AUTO 0.2 K/uL (0.0-0.7); EOSINOPHILS PERCENT AUTO 1.2 % (0.0-7.0); HEMOGLOBIN 13.4 g/dL (13.0-17.0); LYMPHOCYTES ABSOLUTE AUTO 1.2 K/uL (0.6-2.4); MEAN CORPUSCULAR HEMOGLOBIN 32.6 pg (27.0-32.0); MEAN CORPUSCULAR HGB CONC 34.4 g/dL (31.0-37.0); MEAN CORPUSCULAR VOLUME 94.9 fL (80.0-98.0); MONOCYTES ABSOLUTE AUTO 1.1 K/uL (0.0-0.8); MONOCYTES PERCENT AUTO 7.3 % (0.0-15.0); NEUTROPHILS ABSOLUTE AUTO 12.1 K/uL (1.4-5.7); NEUTROPHILS PERCENT AUTO 83.3 % (48.0-80.0); NRBC ABSOLUTE 0 K/uL; PLATELET COUNT,PLT 231 K/uL (150-400); RED BLOOD CELL COUNT 4.11 M/uL (4.50-5.90); WHITE BLOOD CELL COUNT,WBC 14.52 K/uL (4.0-11.0)
[2022-12-04 22:44] LABS: A/G RATIO 0.9 (0.9-1.6); ALBUMIN 3.6 g/dL (3.4-5.0); BILIRUBIN TOTAL 0.6 mg/dL (0.2-1.0); CALCIUM 9.5 mg/dL (8.5-10.1); CARBON DIOXIDE,CO2 22.8 mmol/L (21.0-32.0); CREATININE 1.8 mg/dL (0.8-1.3); EST CRCL DRUG DOSING (CG) 37.77 mL/min; MAGNESIUM 1.9 mg/dL (1.8-2.4); PROTEIN TOTAL,TP 7.4 g/dL (6.4-8.2)
[2022-12-04 22:49] LABS: LACTIC ACID 1.7 mmol/L (0.4-2.0)
[2022-12-04] MEDS ORDERED: Iopamidol 755 MG/ML 500 ML Multipack Bottle IVPUSH STA (23:52)
[2022-12-05] MEDS ORDERED: Ondansetron 4 MG/2 ML SDV IVPUSH ONE (01:01)
[2022-12-05 01:16] LABS: APPEARANCE,URINE CLEAR; BILIRUBIN,URINE NEGATIVE (NEGATIVE); COLOR,URINE YELLOW; GLUCOSE,URINE NEGATIVE (NEGATIVE); KETONES,URINE NEGATIVE (NEGATIVE); LEUKOCYTE ESTERASE,URINE NEGATIVE (NEGATIVE); NITRITE,URINE NEGATIVE (NEGATIVE); OCCULT BLOOD,URINE TRACE-INTACT (NEGATIVE); PROTEIN,URINE NEGATIVE (NEGATIVE); UROBILINOGEN,URINE 0.2 EU/dL (<2.0)
[2022-12-05 01:23] LABS: AMORPHOUS SEDIMENT,URINE LIGHT (NEGATIVE); BACTERIA,URINE RARE (NEGATIVE); EPITHELIAL CELLS,URINE OCCASIONAL (NONE-FEW); RBC,URINE 0-2 (0-2/HPF); WBC,URINE NONE SEEN (0-5/HPF)
[2022-12-05 01:54] VITALS: BP 122/73; PULSE 79
== END 2022-12-05 01:52 | disposition home or self-care (01) ==
LOC: MW.ED 21:31
DX: R11.2 Nausea with vomiting, unspecified (principal); I25.10 Atherosclerotic heart disease of native coronary artery without angina pectoris; I50.9 Heart failure, unspecified; E78.00 Pure hypercholesterolemia, unspecified; M10.9 Gout, unspecified; E11.9 Type 2 diabetes mellitus without complications; Z79.4 Long term (current) use of insulin; Z79.01 Long term (current) use of anticoagulants; Z79.899 Other long term (current) drug therapy
CPT/HCPCS: 36415; 74177; 80053; 81001; 83605; 83690; 83735; 84484; 85025; 93005; 96374; 96376; 99284; J2405; Q9967; 93010